=== PATIENT | male | born 1990 | race Two or more races ===

== ENCOUNTER → 2017-01-07 | Outpatient (CLI) | payer OTHER ==
--- NOTE | 2017-01-07 15:51 | REP ---
Lumbar spine series: Six views. History: Acute low back pain due to trauma. Findings: Lumbar vertebral body heights are preserved. Alignment is normal. No fracture or collapse is seen. There is mild disc space narrowing at L4-5. Pedicles and posterior elements are intact. Psoas margins are symmetric. Sacrum and SI joints are unremarkable. Impression: Mild straightening. No fracture seen. Otherwise negative. Signed by Osorio Machado MD 01/07/2017 05:22 P
== END ==
LOC: M LRY 11:35
PROVIDERS: ATTEND Physician Assistant Medical
DX: M54.5 Low back pain (principal)
CPT/HCPCS: 72110; G0463